=== PATIENT | female | born 2000 | race Caucasian/White ===

== ENCOUNTER 2022-10-04 20:25 | Emergency (ER) | payer SELFPAY ==
[~2022-10-04] VITALS: Ht 157.5 cm; Wt 73.0 kg
[2022-10-04] MEDS ORDERED: IBUPROFEN 400MG TABLET PO ONE (21:45)
[2022-10-04] MEDS ORDERED: DEXAMETHASONE 4MG TABLET PO ONE (21:45)
[2022-10-04] MEDS ORDERED: ACETAMINOPHEN 325MG TABLET PO ONE (21:45)
[2022-10-04 21:56] LABS: CLARITY URINE TURBID (CLEAR); COLOR URINE DARK YELLOW (YELLOW); KETONES URINE TRACE (NEGATIVE); LEUKOCYTE ESTERASE URINE 2+ (NEGATIVE); NITRITE URINE NEGATIVE (NEGATIVE); OCCULT BLOOD URINE 2+ (NEGATIVE); PH URINE 5.5 (4.5-8.0); PROTEIN URINE 3+ (NEGATIVE); SPECIFIC GRAVITY URINE 1.028 (1.005-1.030)
[2022-10-04] MEDS ORDERED: AZITHROMYCIN 500 MG TABLET PO ONE (22:30)
[2022-10-04] MEDS ORDERED: NITROFURANTOIN 100MG M/M CAPSULE PO ONE (22:30)
[2022-10-04] MEDS ORDERED: CEFTRIAXONE SODIUM 500 MG/VIAL IM ONE (22:30)
[2022-10-04 22:51] VITALS: BP 113/66
[2022-10-04] MEDS ORDERED: TOPUD PO (22:57)
[2022-10-04] MEDS ORDERED: IBUP-2028 MT (22:57)
[2022-10-04] MEDS ORDERED: NITR-87 MT (22:57)
[2022-10-09 04:12] LABS: NEISSERIA GONORRHOEAE NAA Negative (Negative)
== END 2022-10-04 23:12 | disposition home or self-care (01) ==
LOC: ER 20:25
DX: N39.0 Urinary tract infection, site not specified (principal); J02.9 Acute pharyngitis, unspecified; Z20.2 Contact with and (suspected) exposure to infections with a predominantly sexual mode of transmission; J45.909 Unspecified asthma, uncomplicated
CPT/HCPCS: 81003; 81025; 87070; 87077; 87086; 87186; 87430; 87491; 87591; 96372; 99284; J0696; J8540